=== PATIENT | female | born 2000 | race Caucasian/White ===

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

== ENCOUNTER 2018-08-24 14:17 | Inpatient (IN) | payer OTHER ==
[~2018-08-24] VITALS: Ht 162.6 cm; Wt 52.8 kg
[2018-08-24 15:33] LABS: UA SPECIFIC GRAVITY 1.015 (1.005-1.035); microscopic required? YES; urine erythrocyte 2+ (NEGATIVE)
--- NOTE | 2018-08-24 15:37 | NUR ---
PT BROUGHT IN BY BOYFRIEND WITH C/O LUMBAR PAIN SINCE YESTERDAY. AT BEDSIDE PT IS AAOX4. RESPS E/U. SKIN IS PINK, WARM AND DRY. PERRLA. PT PLACED ON MONITOR. BED RAILS UP X1 FOR SAFETY. PT ORIENTED TO ROOM, USE OF CALL WOODY AND BED IN LOWEST POSITION. PT IS CALM AND COOPERATIVE. PT AMBULATED FROM LOBBY TO ED WITH STEADY GAIT. PT AWAITING MSE.
[2018-08-24 16:57] LABS: PLATELET COUNT 216 x10^3mcL (130-400); RED CELL DISTRIBUTION WIDTH 12.6 % (11.5-14.5)
[2018-08-24 17:00] LABS: BASOPHIL % 0 % (0-2)
[2018-08-24 17:16] LABS: CALCIUM 9.6 mg/dL (8.5-10.1); CARBON DIOXIDE 25.7 mmol/L (21-32); CHLORIDE SERUM 98 mmol/L (98-107); CREATININE SERUM 0.8 mg/dL (0.6-1.0); GFR1 > 60 mL/min; GLUCOSE SERUM 111 mg/dL (74-106); POTASSIUM SERUM 3.6 mmol/L (3.5-5.1); SODIUM SERUM 136 mmol/L (136-145)
[2018-08-24 17:23] LABS: ALBUMIN 3.4 g/dL (3.4-5.0); ALKALINE PHOSPHATASE 87 U/L (46-116); ALT/SGPT 16 U/L (14-59); AST/SGOT 10 U/L (15-37); BILIRUBIN TOTAL 0.75 mg/dL (0.20-1.00)
--- NOTE | 2018-08-24 18:25 | NUR ---
PT RESTING IN POSITION OF COMFORT. NO ACUTE DISTRESSS NOTED.
--- NOTE | 2018-08-24 19:08 | NUR ---
HAND-OFF REPORT TO RN EDIE TO ASSUME CARE FOR PT.
[2018-08-24 19:20] LABS: FREE T4 1.36 ng/dL (0.76-1.46); FREE THYROXINE INDEX 3.1 ug/dL (1.4-4.5); T4(THYROXINE) 8.8 ug/dL (4.7-13.3)
[2018-08-24 19:22] LABS: T3 TOTAL 1.13 ng/mL
[2018-08-24 19:35] LABS: CHOLESTEROL/HDL RATIO 3.3; MAGNESIUM 1.6 mg/dL (1.8-2.4); PHOSPHOROUS 2.2 mg/dL (2.5-4.9)
--- NOTE | 2018-08-24 19:50 | NUR ---
PT IN POSITION OF COMFORT RESPS E/U PT IN NAD PT AAOX4 AND STABLE FOR TRASNFER TO TELE
--- NOTE | 2018-08-24 20:01 | NUR ---
PT WAS RECEIVED BY PRIMARY NURSE EDIE FROM ED [facility] AT 1958[facility]. PT SEEN LYING IN BED, CAME IN DUE TO LOWER BACK PAIN X2 DAYS. AAOX4. DENIES HEADACHE/DIZZINESS. NO SOB NOTED, LUNG SOUNDS CTA. DENIES CHEST PAIN/PRESSURE. DENIES ABDOMINAL DISCOMFORT. LAST BM=08/23/18. VOIDS. DENIES BURNING SENSATION ON URINATION. DENIES FLANK PAIN AT THIS TIME. IV SITE ON THE LAC IS PATENT AND INTACT. SIDE RAILS UPX2. CALL LIGHT ON REACH. BEDSIDE REPORT GIVEN TO PRIMARY NURSE EDIE FOR CONTINUITY OF CARE.
[2018-08-24 20:05] VITALS: BP 126/77
[2018-08-24 20:10] VITALS: Ht 162.6 cm; Wt 52.8 kg
--- NOTE | 2018-08-24 21:59 | NUR ---
PLACED ON TELE #3, NSR ON THE MONITOR, HR AT 85.
--- NOTE | 2018-08-24 22:20 | NUR ---
US AT BEDSIDE.
--- NOTE | 2018-08-25 01:34 | NUR ---
PT RESTING IN BED COMFORTABLY. NO S/S ACUTE DISTRESS. NO SIGNS OF PAIN APPARENT. CALL LIGHT WITHIN REACH. SAFETY MEASURES IN PLACE. WILL CONTINUE TO MONITOR.
--- NOTE | 2018-08-25 05:32 | NUR ---
PT C/O 09/08 FLANK PAIN, WILL MEDICATE PER EMAR.
[2018-08-25 05:48] VITALS: BP 119/76
[2018-08-25 06:15] LABS: CALCIUM 8.4 mg/dL (8.5-10.1); CARBON DIOXIDE 25.9 mmol/L (21-32); CHLORIDE SERUM 105 mmol/L (98-107); CREATININE SERUM 0.6 mg/dL (0.6-1.0); GFR1 > 60 mL/min; GLUCOSE SERUM 98 mg/dL (74-106); PHOSPHOROUS 2.8 mg/dL (2.5-4.9); POTASSIUM SERUM 3.5 mmol/L (3.5-5.1); SODIUM SERUM 141 mmol/L (136-145)
--- NOTE | 2018-08-25 06:19 | NUR ---
PT HAD RESTFUL NIGHT. MEDICATED PER EMAR FOR PAIN AND C/O NAUSEA. NO CHANGES OVERNIGHT. ALL NEEDS MET AND ATTENDED TO. NO S/S ACUTE DISTRESS. CALL LIGHT WITHIN REACH. UPDATED PT ON POC. SAFETY MEASURES IN PLACE. WILL CONTINUE TO MONITOR.
[2018-08-25 06:23] LABS: BASOPHIL % 0.1 % (0-2); PLATELET COUNT 184 x10^3mcL (130-400); RED CELL DISTRIBUTION WIDTH 12.9 % (11.5-14.5)
--- NOTE | 2018-08-25 07:10 | NUR ---
RECEIVED BEDSIDE REPORT FROM FUR PULLER NURSE. PATIENT IS STABLE, NO APPARENT SIGNS OF PAIN, SOB, OR RESPIRATORY DISTRESS. ON ROOM AIR. PATIENT IS RESTING COMFORTABLY IN BED. DENIES PAIN, AT THIS TIME. IV TO LEFT AC IS INFUSING WELL, NO EDEMA OR ERYTHEMA NOTED AT SITE. PATIENT ORIENTED PATIENT TO ROOM AND EQUIPMENT. CALL LIGHT WITHIN REACH. BED IN LOW POSITION, BED RAILS UP X2. QUESTIONS AND CONCERNS ADDRESSED. SAFETY PRECAUTIONS IN PLACE.
--- NOTE | 2018-08-25 07:21 | NUR ---
BEDSIDE REPORT GIVEN TO PAT TOLENTINO.
--- NOTE | 2018-08-25 07:35 | NUR ---
PHYSICAL ASSESSMENT COMPLETE. PLEASE SEE PROBLEM FOCUSED CARE FOR DETAILS.
--- NOTE | 2018-08-25 07:48 | NUR ---
RECEIVED BEDSIDE REPORT FROM C[employer] NURSE. PATIENT IS STABLE, NO APPARENT SIGNS OF PAIN, SOB, OR RESPIRATORY DISTRESS. ON ROOM AIR. PATIENT IS RESTING COMFORTABLY IN BED. DENIES PAIN, AT THIS TIME. IV TO LEFT AC IS INFUSING WELL, NO EDEMA OR ERYTHEMA NOTED AT SITE. PATIENT ORIENTED PATIENT TO ROOM AND EQUIPMENT. CALL LIGHT WITHIN REACH. BED IN LOW POSITION, BED RAILS UP X2. QUESTIONS AND CONCERNS ADDRESSED. SAFETY PRECAUTIONS IN PLACE.
[2018-08-25 07:56] VITALS: BP 118/68
--- NOTE | 2018-08-25 08:54 | NUR ---
ADMINISTERED MEDICATION PER EMAR. PATIENT TOLORATED WELL. EDUCATED PATIENT ON NEED FOR MEDICATION AND ADVERSE EFFECTS TO REPORT. PATIENT VERBALIZED UNDERSTANDING. SITE. CALL LIGHT WITHIN REACH. BED IN LOW POSITION, BED RAILS UP X2. QUESTIONS AND CONCERNS ADDRESSED. SAFETY PRECAUTIONS IN PLACE.
--- NOTE | 2018-08-25 10:21 | NUR ---
PATIENT IS STABLE NO APPARENT SIGNS OF PAIN, SOB, OR RESPIRATORY DISTERESS. PATIENT IS RESTING COMFORTABLY IN BED. DENIES NEEDS AT THIS TIME. SAFETY RPECAUTIONS IN PLACE.
[2018-08-25 12:19] VITALS: BP 140/78
--- NOTE | 2018-08-25 12:29 | NUR ---
ADMINISTERED PAIN MEDICATION PER EMAR. PATIENT TOLORATED WELL. EDUCATED PATIENT ON NEED FOR MEDICATION AND ADVERSE EFFECTS TO REPORT. PATIENT VERBALIZED UNDERSTANDING. SITE. CALL LIGHT WITHIN REACH. BED IN LOW POSITION, BED RAILS UP X2. QUESTIONS AND CONCERNS ADDRESSED. SAFETY PRECAUTIONS IN PLACE.
--- NOTE | 2018-08-25 13:02 | NUR ---
RECEIVED ORDER FOR STRAIN URINE FOR RENAL CALICULUS. EDUCATED PATIENT ON NEED TO STRAIN URIN METHOD OF URINE COLLECTION, AND TO LET NURSE KNOW WHEN URINE COLLECTION COMPLETE. PATIENT VERBALIZED UNDERSTANDING. CALLECTION CONTAINER AND STRAINING DIVICE IN PATIENT BATHROOM.
--- NOTE | 2018-08-25 14:37 | NUR ---
PATIENT C/O PAIN AND [place]. ADMINISTERED MEDICATION PER EMAR. PATIENT TOLORATED WELL. EDUCATED PATIENT ON NEED FOR MEDICATION AND ADVERSE EFFECTS TO REPORT. PATIENT VERBALIZED UNDERSTANDING. SITE. CALL LIGHT WITHIN REACH. BED IN LOW POSITION, BED RAILS UP X2. QUESTIONS AND CONCERNS ADDRESSED. SAFETY PRECAUTIONS IN PLACE.
[2018-08-25 15:30] VITALS: BP 122/75
--- NOTE | 2018-08-25 15:43 | NUR ---
PATIENT C/O PERSISTANT PAIN TO LS. ADMINISTERED MEDICATION PER EMAR. PATIENT TOLORATED WELL. EDUCATED PATIENT ON NEED FOR MEDICATION AND ADVERSE EFFECTS TO REPORT. PATIENT VERBALIZED UNDERSTANDING. SITE. CALL LIGHT WITHIN REACH. BED IN LOW POSITION, BED RAILS UP X2. QUESTIONS AND CONCERNS ADDRESSED. SAFETY PRECAUTIONS IN PLACE.
--- NOTE | 2018-08-25 16:00 | NUR ---
PATIENT IS STABLE NO APPRENT SIGNS OF SOB, OR RESPIRATORY DISTRESS. PATIENT IS IN SOME DISCOMFORT TO THE LOW BACK. USED NON PAHRM MEASURES REPOSITIONING , MASSAGE AND DISTRACTION. PATIENT DENIES OTHER NEEDS AT THIS TIME.
--- NOTE | 2018-08-25 18:34 | NUR ---
PATIENT IS STABLE NO APPARENT SIGNS OF SOB OR RESPIRATORY DISTRESS. PATIENT IS RESTING COMFORTABLY IN BED. ON ROOM AIR. IV TO LAC IS INFUSING WELL. NO EDEMA OR ERYTHEMA NOTED TO SITE. CALL LIGHT WITHIN REACH. BED IN LOW POSITION, BED RAILS UP X2. QUESTIONS AND CONCERNS ADDRESSED. SAFETY PRECAUTIONS IN PLACE. WILL ENDORSE CARE TO FLAT MACHINE CUTTER NURSE.
[2018-08-25 21:21] VITALS: BP 105/62
--- NOTE | 2018-08-26 05:00 | NUR ---
PT RESTED IN INTERVALS DURING SHIFT, NO ACUTE CHANGES OCCURRING OVERNIGHT. PT REPORTS PAIN UNDER CONTROL, PT REMAINS AFEBRILE. PT DENIES N/V/D. PT HAS NOT REPORTING PASSING STONES AT THIS TIME. IV SITE REMAINS PATENT TO LAC, NS @ 100ML/HR. NO REDNESS, SWELLING OR PAIN NOTED. ALL COMFORT AND SAFETY MEASURES PROVIDED FOR, CALL LIGHT WITHIN REACH, BED IN LOWEST POSITION, WILL CONTINUE TO MONITOR.
[2018-08-26 05:23] VITALS: BP 119/64
[2018-08-26 06:10] LABS: BASOPHIL % 0.2 % (0-2); PLATELET COUNT 190 x10^3mcL (130-400)
[2018-08-26 06:22] LABS: CALCIUM 8.7 mg/dL (8.5-10.1); CARBON DIOXIDE 25.2 mmol/L (21-32); CHLORIDE SERUM 102 mmol/L (98-107); CREATININE SERUM 0.6 mg/dL (0.6-1.0); GFR1 > 60 mL/min; GLUCOSE SERUM 101 mg/dL (74-106); POTASSIUM SERUM 3.7 mmol/L (3.5-5.1); SODIUM SERUM 139 mmol/L (136-145)
--- NOTE | 2018-08-26 07:40 | NUR ---
PATIENT RESTING IN BED, NO ACUTE DISTRESS NOTED. PATIENT DENIES PAIN AT THIS TIME. PATIENT DENEIS N/V. NS IV INFUSING AT 100ML/HR, IV SITE CDI & PATENT, NO S/S OF INFILTRATION. EDUCATED PATIENT ON PAIN MANAGEMENT. CALL LIGHT WITHIN REACH, BED IN LOW POSITION. WILL CONTINUE TO MONITOR PATIENT.
--- NOTE | 2018-08-26 07:46 | NUR ---
ENDORSED ALL CARE TO DAYSHIFT NURSE, ALL QUESTIONS AND CONCERNS ADDRESSED, ALL COMFORT AND SAFETY MEASURES PROVIDED FOR, CALL LIGHT WITHIN REACH, BED IN LOWEST POSITION.
--- NOTE | 2018-08-26 08:42 | NUR ---
PATIENT C/O LOWER BACK PAIN 07/09. MEDICATED PATIENT WITH NORCO PER PROTOCOL (SEE EMAR). REPOSITION PATIENT FOR COMFORT. WILL CONTINUE TO MONITOR, CALL LIGHT WITHIN REACH, BED IN LOW POSITION.
[2018-08-26 09:39] VITALS: BP 111/66
--- NOTE | 2018-08-26 10:58 | NUR ---
PATIENT FINISHED SHOWERING. PATIENTS TEMP DECREASED TO 99.0. TELE MANUFACTURING MACHINE OPERATOR AWARE. PATIENT DENIES PAIN. WILL CONTINUE TO MONITOR FOR CHANGES. CALL LIGHT WITHIN REACH, BED IN LOW POSITION FOR SAFETY PRECAUTION.
[2018-08-26 13:29] VITALS: BP 111/65
[2018-08-26 15:27] VITALS: BP 111/65
--- NOTE | 2018-08-26 15:50 | NUR ---
DR BRANTLEY AWARE PATIENT TEMPERATURE WAS 101.5, DR. BRANTLEY SAID ITS OKAY FOR PATIENT TO BE DISCHARGE HOME AND WILL NEED TO FOLLOW UP WITH PCP. WILL UPDATE PATIENT.
--- NOTE | 2018-08-26 16:22 | NUR ---
PATIENT TEMP WAS 101.5, MEDICATED PATIENT WITH TYLENOL PER PROTOCOL. EDUCATED PATIENT TO MONITOR TEMPERATURE AT HOME AND TO CONTINUE COOLING MEASURES AT HOME. PATIENT AND FAMILY AWARE TO COVER WITH ONLY A LIGHT BLANKET, AND USE WET CLOTH OR ICE FOR COOLING. PER DR BRANTLEY, PATIENT MAY STILL EXPERIENCE FEVER AND PATIENT IS TO TAKE MEDICATIONS PRESCRIBED. PATIENT AND FAMILY VERBALIZE UNDERSTANDING.
--- NOTE | 2018-08-26 16:40 | NUR ---
PATIENT WAS D/C HOME, FAMILY AT BEDSIDE. PATIENT RECEIVED COPY OF DISCHARGE INSTRUCTIONS. PATIENT UNDERSTANDS AND AGREES WITH PLAN OF CARE AND INSTRUCTIONS, INCLUDING MEDICATIONS & FOLLOW UP CARE WITH PCP. PATIENT UNDERSTANDS TOO MAINTAIN WELL HYDRATED, AND TO CONTACT PCP OR LOCAL ER IF WORSENING SYMPTOMS OCCUR SUCH TEMPERATURE, PAIN, SWELLING OR SHORTNESS OF BREATH ETC. ALL QUESTIONS AND CONCERNS ADDRESSED. TELE MONITOR & ARMBANDS REMOVED. IV TO LAC REMOVED BY RN STUDENT. PATIENT TAKEN DOWN BY DELIVERY DRIVER/SUPERVISOR.
== END 2018-08-26 16:33 | disposition home or self-care (01) | DRG 720 ==
LOC: ED 14:17 → MU 18:37 → DU 18:37 → MU 19:50 → DU 21:56
PROVIDERS: Emergency Medicine; Internal Medicine; ADMIT Internal Medicine Pulmonary Disease
DX: A41.9 Sepsis, unspecified organism (principal); N17.0 Acute kidney failure with tubular necrosis; N10 Acute pyelonephritis; E44.1 Mild protein-calorie malnutrition; E83.42 Hypomagnesemia; E83.39 Other disorders of phosphorus metabolism; Z68.20 Body mass index [BMI] 20.0-20.9, adult
CPT/HCPCS: 84439; G0378; J0696; J1885; J1956; J2270; J2405; J3010; J7030; Q0092